=== PATIENT | female | born 1955 | race Caucasian/White ===

== ENCOUNTER → 2024-07-26 | Outpatient (REF) | payer MEDICARE | LOC: MAMMO 12:40 | PROVIDERS: ATTEND Family Medicine | DX: Z12.31 Encounter for screening mammogram for malignant neoplasm of breast (principal); R10.84 Generalized abdominal pain | CPT/HCPCS: 74018; 77067 ==

== ENCOUNTER 2024-09-10 16:43 | Emergency (ER) | payer MEDICARE ==
[~2024-09-10] VITALS: Ht 157.5 cm; Wt 62.6 kg
[2024-09-10 16:50] VITALS: PULSE 94; RESP 18; TEMP 98.3; O2SAT 100
[2024-09-10] MEDS: ONDANSETRON HCL INJ 2MG/ML 2ML 2 MG/ML VIAL IV PRN (17:06)
[2024-09-10] MEDS: METOCLOPRAMIDE HCL 10 MG/2ML VIAL IV ONE (17:06)
[2024-09-10] MEDS: SODIUM CHLORIDE 0.9% 1000ML 1,000 ML IV STA (17:07)
[2024-09-10 17:10] LABS: BASOPHILS # (AUTO) 0.2 (0.0-0.1); EOSINOPHILS # (AUTO) 0.2 (0.0-0.4); LYMPHOCYTES # (AUTO) 3.3 (1.0-3.2); LYMPHOCYTES % 21.3 % (18.0-39.1); MEAN CORPUSCULAR HEMOGLOBIN 28.9 pg (28-32); MEAN CORPUSCULAR HGB CONC 33.3 g/dL (31-35); MEAN CORPUSCULAR VOLUME 86.6 fL (81-99); MONOCYTES # (AUTO) 1.3 (0.2-0.8); MONOCYTES % 8.3 % (4.4-11.3); NEUTROPHILS # (AUTO) 10.7 (2.1-6.9); NEUTROPHILS % 68.1 % (38.7-80.0); PLATELET COUNT 565 x10e3/uL (140-360); RED BLOOD COUNT 6.58 x10e6/uL (3.6-5.1); RED CELL DISTRIBUTION WIDTH 13.2 % (11.7-14.4)
[2024-09-10 17:32] LABS: ALBUMIN 4.5 g/dL (3.5-5.0); ALBUMIN/GLOBULIN RATIO 1.1 (0.8-2.0); ANION GAP 19.4 mmol/L (8-16); CALCIUM 9.7 mg/dL (8.4-10.2); CREATININE, SERUM 1.53 mg/dL (0.57-1.11); POTASSIUM 4.4 mmol/L (3.5-5.1); TOTAL PROTEIN 8.6 g/dL (6.5-8.1)
[2024-09-10] MEDS ORDERED: ONDANSETRON ODT4 MG PO (17:40)
[2024-09-10] MEDS ORDERED: REGLAN10 MG PO (17:40)
[2024-09-10] MEDS ORDERED: OMEPRAZOLE40 MG PO (17:41)
== END 2024-09-10 18:30 | disposition home or self-care (01) ==
LOC: ER 16:55
DX: R11.2 Nausea with vomiting, unspecified (principal); K29.70 Gastritis, unspecified, without bleeding; T38.3X5A Adverse effect of insulin and oral hypoglycemic [antidiabetic] drugs, initial encounter; R53.1 Weakness; I10 Essential (primary) hypertension; F90.9 Attention-deficit hyperactivity disorder, unspecified type; F17.210 Nicotine dependence, cigarettes, uncomplicated
CPT/HCPCS: 36415; 80053; 83690; 85025; 99284; J2405; J2765; J7030